=== PATIENT | male | born 1990 | race Caucasian/White ===

== ENCOUNTER 2019-09-08 08:53 | Day surgery (SDC) | payer OTHER ==
[~2019-09-08] VITALS: Ht 167.6 cm; Wt 68.0 kg
[~2019-09-08 08:53] MED LIST: KLONOPIN0.5 MG PO
[2019-09-08] MEDS ORDERED: ADVIL200 MG PO (09:18)
[2019-09-08] MEDS ORDERED: APAP325 MG PO (09:19)
[2019-09-08 09:23] VITALS: BP 111/72; Ht 167.6 cm; Wt 68.0 kg
[2019-09-08] MEDS ORDERED: HYDROCODON-ACE1 EA10 PO (11:17)
--- NOTE | 2019-09-08 12:46 | NUR ---
5573 PT RECIEVED A FULL LIQ TRAY. INSTRUCTIONS GIVEN
--- NOTE | 2019-09-08 12:55 | NUR ---
1255 IV REMOVED AND PRESSURE HELD
--- NOTE | 2019-09-10 11:11 | OP ---
PATIENT NAME: MADHURI GOMEZ MEDICAL RECORD: [id number] :90 LOCATION:[facility] ADMISSION DATE: SURGEON: TOMASZ VALLE MD DATE OF OPERATION: 09/08/2019 PREOPERATIVE DIAGNOSIS: Painful hardware of the left hip. POSTOPERATIVE DIAGNOSIS: Painful hardware of the left hip. PROCEDURE: Removal of painful hardware of the left wrist. SURGEON: Tomasz Valle MD ANESTHESIA: General. INTRAOPERATIVE COMPLICATIONS: None. SUMMARY OF PATHOLOGIC FINDINGS: The patient had at least 2 screws in the back of the locking position sitting right over the medial nerve likely causing the patient's symptoms. The entire plate was removed. Final radiographs were taken and submitted for final radiologist review. The patient does have some post-traumatic changes in his wrist, seen better after the plate was removed. OPERATIVE SUMMARY IN DETAIL: After obtaining the appropriate preoperative orthopedic surgery consent as well as anesthetic consultation, evaluation and clearance, the patient was brought to the operating room and placed on the operating table in a supine position. After general laryngeal mask airway was administered, tourniquet was placed on the proximal aspect of the left upper extremity. Left upper extremity was then prepped and draped in routine sterile fashion. The arm was elevated and exsanguinated, tourniquet inflated to 250 mmHg. After the appropriate timeout was taken and agreed upon by all, previously utilized incision was utilized again, long and slightly taken down to the FCR. Careful dissection was carried down to identify the flexures as well as the median nerve. These were gently retracted. The plate was exposed in its entirety and then under fluoroscopic guidance, serial and sequential removal was done of all screws including the proximal as well as the distal screws. These were all taken out. The plate was removed quite easily. Final radiographs were taken and submitted for radiologist review. The wound was then copiously irrigated and closed by DURAN Villa with 2-0 Vicryl followed by 4-0 Prolene. Sterile dressings were applied. Tourniquet was deflated. The patient was awakened and taken to recovery room in stable condition. All final needle and sponge counts were correct. TRANSINT:[id number] Voice Confirmation ID: [id number] DOCUMENT ID: [id number] TOMASZ VALLE MD at 1111 CC: [id number] DICTATION DATE: 09/08/19 1125 COOPERATIVE EXTENSION AGENT: 09/08/19 1834 [facility] 09/08/19 [id number] [place] [address]
== END 2019-09-08 13:15 | disposition home or self-care (01) ==
LOC: D.OPS 08:53 → D.PAN 12:55 → D.OPS 13:05 → D.PAN 14:20 → D.OPS 16:00 → D.PAN 16:00
PROVIDERS: ATTEND Orthopaedic Surgery
DX: M25.532 Pain in left wrist (principal); Z97.8 Presence of other specified devices

== ENCOUNTER 2019-10-13 18:03 | Emergency (ER) | payer OTHER ==
[~2019-10-13] VITALS: Ht 167.6 cm; Wt 65.5 kg
[~2019-10-13 18:03] MED LIST changes: +ADVIL200 MG PO; +APAP325 MG PO; +HYDROCODON-ACE1 EA10 PO
[2019-10-13] MEDS ORDERED: GLUCOPHAGE500 MG PO (18:13)
[2019-10-13 18:38] VITALS: BP 119/63; Ht 167.6 cm; Wt 65.5 kg
== END 2019-10-13 19:00 | disposition left against medical advice (07) ==
LOC: D.ER 18:03
DX: M79.604 Pain in right leg (principal); M79.605 Pain in left leg

== ENCOUNTER 2020-12-05 13:23 | Emergency (ER) | payer OTHER ==
[~2020-12-05] VITALS: Ht 167.6 cm; Wt 66.4 kg
[~2020-12-05 13:23] MED LIST changes: +CLEOCIN HCL300 MG PO; +GLUCOPHAGE500 MG PO; +KEFLEX500 MG PO; +PROZAC10 MG PO; +ULTRAM50 MG PO
[2020-12-05 13:28] VITALS: BP 112/71; Ht 167.6 cm; Wt 66.4 kg
[2020-12-05] MEDS ORDERED: CLEOCIN HCL300 MG PO (14:18)
== END 2020-12-05 14:40 | disposition home or self-care (01) ==
LOC: D.ER 13:23
DX: S01.81XA Laceration without foreign body of other part of head, initial encounter (principal); W10.9XXA Fall (on) (from) unspecified stairs and steps, initial encounter; Y93.9 Activity, unspecified; Y92.9 Unspecified place or not applicable